=== PATIENT | male | born 1960 | race Caucasian/White ===

== ENCOUNTER 2021-05-10 11:00 | Emergency (ER) | payer SELFPAY ==
[2021-05-10 11:04] VITALS: BP 114/61; PULSE 60; RESP 16; TEMP 36.8; O2SAT 93; BMI 21.4
--- NOTE | 2021-05-10 11:28 | ECG_ITS ---
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 Measurements Intervals [place] Rate: 56 P: 67 ND: 155 QRS: 81 QRSD: 106 T: 90 QT: 446 QTc: 432 Interpretive Statements SINUS BRADYCARDIA POSSIBLE LEFT VENTRICULAR HYPERTROPHY [VOLTAGE CRITERIA PLUS LAE OR QRS WIDENING] MODERATE T-WAVE ABNORMALITY, CONSIDER ANTERIOR ISCHEMIA [-0.1+ mV T-WAVE IN V3/V4] Prominent U waves-consider electrolyte abnormalities/medications/ischemia Compared to ECG 05/01/2017 15:04:48 Sinus rhythm no longer present T-wave abnormality still present Possible ischemia still present Electronically Signed On 05-10-2021 22:17:45 POWERTRAIN ENGINEER by Fide Kurtz M.D. [email or web address] [email or web address] [email or web address].[email or web address]/store/NU/[id number] f
[2021-05-10] MEDS: sodium chloride 0.9% 1,000 ML 999 ML IV ×2 (11:30→13:00)
--- NOTE | 2021-05-10 11:30 | W.ED.GENADLT ---
HPI - General Adult General: Chief complaint: Nausea/Vomiting/Diarrhea Stated complaint: WEAKNESS; DEHYDRATION Time Seen by Provider: 05/10/21 11:06 History of Present Illness: HPI narrative: Patient is a 60-year-old male with history of CHF, A. fib on amiodarone presents to the emergency room with concerns of diarrhea, decreased p.o. intake. Patient says that that he has had diarrhea for the last 3 days. Patient has had decreased appetite. Denies any nausea or vomiting. Patient report mild dysuria symptoms without any new penile discharge. No trauma this time. Patient denies any associated chest pain, shortness of breath, palpitation or lightheadedness. Patient says that he has been feeling weak all over and had a cough for the last 3 days. No recent antibiotics, denies melena or hematochezia, no recent travel. Onset: 3 days ago Duration:3 days Location:home Severity:moderate Review of Systems Narrative: Constitutional: No fever, no chills. HEENT: No vision changes CV: No chest pain, no palpitations PULM: no cough, no dyspnea. GI: No abdominal pain, -N/-V/+D. +decreased appetite : No dysuria MSKEL: No muscle pain SKIN: No new rashes, no lesions. NEURO: No headache, no focal weakness. HEME: No visible bruises PSYCH: Normal mood Physical Exam Narrative: EXAM NARRATIVE: Head: Atraumatic Eyes: PERRL, conjunctiva without injection ENT: Mucous membrane moist NECK: Supple, ROM intact LUNGS: LCTAB, no crackles/rhonchi CV: RRR ABDOMEN: Soft, No focal TTP. NO guarding rebound, guarding, rigidity. No CVA tenderness to percussion. Neg Krishnamurthy/Neg McBurney's point tenderness, no suprabupic tenderness to palpation. EXTREMITY: Normal ROM SKIN: No rash or erythema NEURO: Awake and alert, no focal motor deficits PSYCH: Normal mood and affect Course Vital Signs: Vital signs: Vital Signs Temperature 98.3 F 05/10/21 11:04 Pulse Rate 60 05/10/21 17:36 Respiratory Rate 16 05/10/21 17:36 Blood Pressure 162/81 05/10/21 17:36 Pulse Oximetry 93 05/10/21 17:36 MDM - General Adult MDM Narrative: Medical decision making narrative: 60-year-old male with a history of A. fib on amiodarone, CHF presenting to the emergency room for concerns of diarrhea, generalized weakness, and symptoms of dysuria. On exam, patient has no focal findings. Symptoms are most consistent with possible viral infection including Covid. In addition, differential diagnosis includes gastroenteritis. No suspicion patient for acute intra-abdominal process patient has no focal abdominal tenderness palpation. Given generalized weakness, will evaluate with EKG. Workup: CBC, CMP, lipase, UA Intervention: IVF and covid Patient was found to be Covid positive. Creatinine noted 1.3. Likely reflective of dehydration. Patient instructed to drink plenty of water at this time and to continue to put up with p.o. intake. Troponin of 23 on arrival with delta of less than 5. Patient received 2 L of fluid, is now tolerating p.o. without any difficulty. Other electrolyte abnormality including sodium discussed with patient today. Rx: Maalox, Pepcid as needed dyspepsia Disposition: Discharge. Patient counseled regarding diagnostic impression, treatment plan. Patient given ED strict return precautions to return for continuation, worsening, or development of new symptoms. Instructed to f/u w/ PCP regarding symptoms today. Patient verbalized understanding. Lab Data: Labs: Lab Results 05/10/21 05/10/21 05/10/21 11:22 11:22 11:22 WBC 15.3 10^3/uL H 10 ^3/uL (4.0-10.0) RBC 4.77 10^6/uL 10^6 /uL (4.1-5.3) Hgb 14.6 g/dL g/dL (11.7-16.6) Hct 42.0 % % (42.0-52.0) MCV 88.1 fl fl (80-94) MCH 30.6 pg pg (28.0-34.0) MCHC 34.8 g/dL g/dL (30.0-36.0) RDW 17.5 % H % (12.1-15.1) Plt Count 228 10^3/cmm 10^3 /cmm (130-400) MPV 12.1 fL H fL (7.4-10.4) Neut % (Auto) 79.9 % % Lymph % (Auto) 10.3 % % [place] % (Auto) 9.1 % % Eos % (Auto) 0.1 % % Baso % (Auto) 0.1 % % Neut # (Auto) 12.19 10^3/uL H 1 0^3/uL (1.8-7.7) Lymph # (Auto) 1.6 10^3/uL 10^3/ uL (0.8-4.8) [place] # (Auto) 1.4 10^3/uL H 10^ 3/uL (0.2-0.9) Eos # (Auto) 0.0 10^3/uL 10^3/ uL (0.0-0.8) Baso # (Auto) 0.0 10^3/uL 10^3/ uL (0.0-0.1) Nucleated RBC % (a uto) 0 % % Nucleated RBCs # 0.0 /100WBC /100W BC Sodium 129 mmol/L L mmol /L (136-145) Potassium 3.9 mmol/L mmol/L (3.5-5.1) Chloride 95 mmol/L L mmol/ L (98-107) Carbon Dioxide 23 mmol/L mmol/L (22-29) Anion Gap 14.9 (5-19) BUN 21 mg/dL H mg/dL (6-20) Creatinine 1.3 mg/dL H mg/dL (0.7-1.2) GFR Calculation 56.5 mL/min L mL/ min (90-130) Glucose 114 mg/dL mg/dL (65-115) Calculated Osmolal ity 272 mOsm/kg L mOs m/kg (285-295) Calcium 7.7 mg/dL L mg/dL (8.5-10.5) Magnesium Total Bilirubin 0.8 mg/dL mg/dL (0.15-1.2) AST 594 U/L H U/L (0-40) ALT 776 U/L H U/L (0-41) Alkaline Phosphata se 96 IU/L IU/L (40-130) Troponin T Gen 5 n g/L 25 ng/L H ng/L (0-15) Troponin T 120 Min ken[place]ze Delta Troponin T Total Protein 6.7 g/dL g/dL (6.6-8.7) Albumin 3.2 g/dL L g/dL (3.5-5.2) Globulin 3.5 g/dL g/dL (1.3-4.6) Lipase 27 U/L U/L (13-60) Urine Color Urine Appearance Urine pH Ur Specific Gravit y Urine Protein Urine Glucose (UA) Urine Ketones Urine Blood Urine Nitrate Urine Bilirubin Urine Urobilinogen Ur Leukocyte Delaney ase Urine RBC Urine WBC Ur Squamous Epith Cells Ur Transition Epit h Cell Amorphous Sediment Urine Bacteria Coarse Granular Ca sts SARS-CoV-2 Ag (Rap id) 05/10/21 05/10/21 05/10/21 11:22 14:26 14:52 WBC RBC Hgb Hct MCV MCH MCHC RDW Plt Count MPV Neut % (Auto) Lymph % (Auto) [place] % (Auto) Eos % (Auto) Baso % (Auto) Neut # (Auto) Lymph # (Auto) [place] # (Auto) Eos # (Auto) Baso # (Auto) Nucleated RBC % (a uto) Nucleated RBCs # Sodium Potassium Chloride Carbon Dioxide Anion Gap BUN Creatinine GFR Calculation Glucose Calculated Osmolal ity Calcium Magnesium 2.0 mg/dL mg/dL (1.7-2.3) Total Bilirubin AST ALT Alkaline Phosphata se Troponin T Gen 5 n g/L Troponin T 120 Min [place] 19.59 ng/L H ng/L (0-15) Delta Troponin T -5.41 ABS# L ABS# (0-10) Total Protein Albumin Globulin Lipase Urine Color Urine Appearance Urine pH Ur Specific Gravit y Urine Protein Urine Glucose (UA) Urine Ketones Urine Blood Urine Nitrate Urine Bilirubin Urine Urobilinogen Ur Leukocyte Delaney ase Urine RBC Urine WBC Ur Squamous Epith Cells Ur Transition Epit h Cell Amorphous Sediment Urine Bacteria Coarse Granular Ca sts SARS-CoV-2 Ag (Rap id) Positive H (Negative) 05/10/21 15:50 WBC RBC Hgb Hct MCV MCH MCHC RDW Plt Count MPV Neut % (Auto) Lymph % (Auto) [place] % (Auto) Eos % (Auto) Baso % (Auto) Neut # (Auto) Lymph # (Auto) [place] # (Auto) Eos # (Auto) Baso # (Auto) Nucleated RBC % (a uto) Nucleated RBCs # Sodium Potassium Chloride Carbon Dioxide Anion Gap BUN Creatinine GFR Calculation Glucose Calculated Osmolal ity Calcium Magnesium Total Bilirubin AST ALT Alkaline Phosphata se Troponin T Gen 5 n g/L Troponin T 120 Min [place] Delta Troponin T Total Protein Albumin Globulin Lipase Urine Color Yellow (Yellow) Urine Appearance Clear (CLEAR) Urine pH 5 (5-7) Ur Specific Gravit y 1.020 (1.005-1.030) Urine Protein Neg (Negative) Urine Glucose (UA) Norm (Normal) Urine Ketones Negative (Negative) Urine Blood 2+ H (Negative) Urine Nitrate Negative (Negative) Urine Bilirubin Neg (Negative) Urine Urobilinogen Norm mg/dL mg/dL (Negative) Ur Leukocyte Delaney ase Negative (Negative) Urine RBC Rare /hpf /hpf (0-2) Urine WBC 0-4 /hpf H /hpf (0-5) Ur Squamous Epith Cells None /hpf /hpf (0-5) Ur Transition Epit h Cell 0-4 /hpf /hpf Amorphous Sediment Not Reportable Urine Bacteria Trace /hpf /hpf (NONE) Coarse Granular Ca sts 10-15 /lpf H /lpf SARS-CoV-2 Ag (Rap id) Discharge Plan Discharge Patient Disposition: Home Clinical Impression: Diarrhea, Nausea & vomiting, COVID Condition: Stable Prescriptions: New Pepcid 20 mg tablet 20 mg PO BID PRN (Reason: abdominal pain) 10 Days Qty: 20 RF: 0 Maalox Advanced 1,000-60 mg tablet,chewable 1 tab PO TID PRN (Reason: abdominal pain) 7 Days Qty: 21 RF: 0 Zofran 4 mg tablet 4 mg PO TID PRN (Reason: nausea and vomiting) 4 Days Qty: 12 RF: 0 No Action amlodipine 10 mg tablet 10 mg PO DAILY 90 Days Qty: 90 RF: 3 Discharge Orders: Discharge ED (Routine); Ordered 05/10/21 Ordered By: Jesus Morales Referrals: Bertha Balderrama MD [Primary Care Provider] - Discharge Diet: Advance as tolerated Discharge Activity: Resume usual activity Patient Instructions: Acute Diarrhea (ED), COVID-19 (Coronavirus Disease 2019) (ED) Activity Restrictions/Additional Instructions: Come back if you have any nausea or vomiting, difficulty eating or drinking, worsening diarrhea, blood in the stool, or any new or concerning complaints. Please come back if your pulse Ox is less than 92. 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
[2021-05-10] MEDS: sodium chloride 0.9% 500 ML IV (11:31)
[2021-05-10] MEDS: lidocaine 2% viscous 15 ML, aluminum-mag hydrox-simethicon 30 ML, sucralfate oral liq 1 GM PO (11:32)
[2021-05-10 11:41] LABS: Basophils % 0.1 %; Eosinophils % 0.1 %; Hemoglobin 14.6 g/dL (11.7-16.6); Lymphocytes # 1.6 10^3/uL (0.8-4.8); Lymphocytes % 10.3 %; Mean Corpuscular HGB Conc 34.8 g/dL (30.0-36.0); Mean Corpuscular Hemoglobin 30.6 pg (28.0-34.0); Mean Corpuscular Volume 88.1 fl (80-94); Mean Platelet Volume 12.1 fL (7.4-10.4); Monocytes # 1.4 10^3/uL (0.2-0.9); Monocytes % 9.1 %; Neutrophils # 12.19 10^3/uL (1.8-7.7); Neutrophils % 79.9 %; Nucleated Red Blood Cells % 0 %; Platelet Count 228 10^3/cmm (130-400); Red Blood Count 4.77 10^6/uL (4.1-5.3); Red Cell Distribution Width 17.5 % (12.1-15.1); White Blood Count 15.3 10^3/uL (4.0-10.0)
[2021-05-10 12:22] LABS: Albumin Level 3.2 g/dL (3.5-5.2); Alkaline Phosphatase 96 IU/L (40-130); Anion Gap 14.9 (5-19); Aspartate Amino Transferase 594 U/L (0-40); Blood Urea Nitrogen 21 mg/dL (6-20); Calcium 7.7 mg/dL (8.5-10.5); Carbon Dioxide 23 mmol/L (22-29); Chloride 95 mmol/L (98-107); Globulin 3.5 g/dL (1.3-4.6); Glomerular Filtration Rate 56.5 mL/min (90-130); Glucose 114 mg/dL (65-115); Lipase 27 U/L (13-60); Osmolality Calculated 272 mOsm/kg (285-295); Potassium 3.9 mmol/L (3.5-5.1); Sodium 129 mmol/L (136-145); Total Bilirubin 0.8 mg/dL (0.15-1.2); Total Protein 6.7 g/dL (6.6-8.7)
[2021-05-10 12:23] LABS: Troponin T (5th) Once 25 ng/L (0-15)
[2021-05-10 12:33] LABS: Alanine Aminotransferase 776 U/L (0-41)
[2021-05-10 12:51] VITALS: BP 122/65; RESP 16; O2SAT 94
--- NOTE | 2021-05-10 14:32 | ECG_ITS ---
[facility] Test Date: 2021-05-10 Pat Name: Davonte Ruiz Department: Room: Gender: Male Business Professor: : 1960 Requested By: Jesus Morales Order Number: [id number] Shameka MD: Fide Kurtz M.D. Measurements Intervals [place] Rate: 63 P: 83 DE: 166 QRS: 82 QRSD: 110 T: 82 QT: 542 QTc: 555 Interpretive Statements SINUS RHYTHM POSSIBLE LEFT VENTRICULAR HYPERTROPHY [VOLTAGE CRITERIA PLUS LAE OR QRS WIDENING] MODERATE T-WAVE ABNORMALITY, CONSIDER ANTERIOR ISCHEMIA [-0.1+ mV T-WAVE IN V3/V4] Compared to ECG 05/10/2021 12:47:55 Sinus bradycardia no longer present T-wave abnormality still present Possible ischemia still present Electronically Signed On 05-10-2021 22:18:09 DECISION SUPPORT MANAGER by Fide Kurtz M.D. [email or web address] choice medical center of smith countyBest Apps Marketlouis stokes [facility].[email or web address]/store/[id number] f
[2021-05-10 15:00] VITALS: BP 142/72; PULSE 59; RESP 16; O2SAT 95
[2021-05-10 15:23] LABS: Troponin 5 2HR 19.59 ng/L (0-15)
[2021-05-10 15:42] LABS: SARS Covid-2 Antigen Positive (Negative)
[2021-05-10 15:51] LABS: Troponin 5 2HR Delta -5.41 ABS# (0-10)
[2021-05-10 16:37] VITALS: BP 142/73; PULSE 60; RESP 16; O2SAT 93
[2021-05-10 17:16] LABS: Add Urine Microscopic? YES; Bacteria Urine TRACE /hpf; Bilirubin Urine Neg (Negative); Blood Urine 2+ (Negative); Glucose Urine UA Norm (Normal); Ketones Urine Negative (Negative); Leukocyte Esterase Urine Negative (Negative); Nitrate Urine Negative (Negative); Protein Urine Neg (Negative); RBC Urine RARE /hpf (0-2); Transitional Epi Cells Urine 0-4 /hpf; Urine Appearance Clear (CLEAR); Urine Color Yellow (Yellow); Urobilinogen Urine Norm (Negative); WBC Urine 0-4 /hpf (0-5); pH Urine 5 (5-7)
[2021-05-10 17:17] LABS: Add Urine Culture? No
[2021-05-10 17:36] VITALS: BP 162/81; PULSE 60; RESP 16; O2SAT 93
[2021-05-12 16:30] LABS: Coronavirus Test Green County Detected
--- NOTE | 2021-05-13 09:05 | PC.NURSE ---
Addendum entered by Vangie Yi RN 05/13/21 09:07: Pt was notified of Positive COVID test is (+). Ignore first message Original Note: Notified pt of Negative COVID result
== END 2021-05-10 18:03 | disposition home or self-care (01) ==
PROVIDERS: Emergency Provider Emergency Medicine; PCP Family Medicine
DX: U07.1 COVID-19 (principal)
CPT/HCPCS: 36415; 80053; 81001; 83690; 83735; 84484; 85025; 87426; 87635; 93005; 96360; 96361; 99283; J7030; J7040

== ENCOUNTER 2021-05-22 12:03 | Outpatient (CLI) | payer OTHER, SELFPAY ==
--- NOTE | 2021-05-22 12:14 | XR_ITS ---
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 Findings: No nodules, masses or effusions are seen. The heart is normal. The pulmonary vascularity is not increased. No pneumonia or pneumothorax is seen. Midline sternotomy sutures are seen. XR/XR chest 2V* [id number] Impression: Negative chest.
== END 2021-05-22 12:04 | disposition home or self-care (01) ==
LOC: RAD 12:07
PROVIDERS: PCP Electrodiagnostic Medicine; Visit Provider Electrodiagnostic Medicine
DX: U07.1 COVID-19 (principal); G61.0 Guillain-Barre syndrome; I25.5 Ischemic cardiomyopathy
CPT/HCPCS: 71046

== ENCOUNTER 2021-07-23 08:37 | Outpatient (CLI) | payer BC, SELFPAY ==
[2021-07-23 09:12] LABS: INR 1.73 (0.8-1.2)
== END 2021-07-23 08:38 | disposition home or self-care (01) ==
LOC: LAB 08:39
PROVIDERS: PCP Electrodiagnostic Medicine; Visit Provider Electrodiagnostic Medicine
DX: G61.81 Chronic inflammatory demyelinating polyneuritis (principal); I25.5 Ischemic cardiomyopathy; I48.91 Unspecified atrial fibrillation
CPT/HCPCS: 85610

== ENCOUNTER → 2021-07-31 08:39 | Day surgery (SDC) | payer BC, SELFPAY ==
[2021-07-31] MEDS: acetaminophen 325 mg Tablet 650 MG PO (08:55)
[2021-07-31] MEDS: diphenhydrAMINE 25 mg Capsule 50 MG PO (08:55)
[2021-07-31 09:11] VITALS: BP 121/67; PULSE 56; RESP 18; TEMP 36; O2SAT 98
== END ==
PROVIDERS: PCP Electrodiagnostic Medicine; Visit Provider Psychiatry & Neurology Neurology
DX: G61.81 Chronic inflammatory demyelinating polyneuritis (principal)
CPT/HCPCS: 96365; 96366; J1568

== ENCOUNTER 2021-07-31 08:40 | Outpatient (CLI) | payer BC, SELFPAY ==
[2021-07-31 09:08] LABS: INR 2.21 (0.8-1.2)
== END 2021-07-31 08:41 | disposition home or self-care (01) ==
PROVIDERS: PCP Electrodiagnostic Medicine; Visit Provider Electrodiagnostic Medicine
DX: G61.81 Chronic inflammatory demyelinating polyneuritis (principal); I25.5 Ischemic cardiomyopathy; I48.91 Unspecified atrial fibrillation
CPT/HCPCS: 85610

== ENCOUNTER → 2021-08-21 08:38 | Day surgery (SDC) | payer BC, SELFPAY ==
[2021-08-21] MEDS: diphenhydrAMINE 50 mg Capsule PO (08:58)
[2021-08-21] MEDS: acetaminophen 325 mg Tablet 650 MG PO (08:58)
[2021-08-21 09:10] VITALS: BP 143/65; PULSE 60; RESP 18; TEMP 36.6; O2SAT 98
== END ==
PROVIDERS: PCP Electrodiagnostic Medicine; Visit Provider Psychiatry & Neurology Neurology
DX: G61.81 Chronic inflammatory demyelinating polyneuritis (principal)
CPT/HCPCS: 96365; 96366; J1568; Q0163

== ENCOUNTER → 2021-09-09 09:10 | Day surgery (SDC) | payer BC, SELFPAY ==
[2021-09-09] MEDS: diphenhydrAMINE 50 mg Capsule PO (09:42)
[2021-09-09] MEDS: acetaminophen 325 mg Tablet 650 MG PO (09:42)
[2021-09-09 09:52] VITALS: BP 155/89; PULSE 65; RESP 18; TEMP 36.8; O2SAT 97
== END ==
PROVIDERS: PCP Electrodiagnostic Medicine; Visit Provider Psychiatry & Neurology Neurology
DX: G61.81 Chronic inflammatory demyelinating polyneuritis (principal)
CPT/HCPCS: 96365; 96366; J1568; Q0163

== ENCOUNTER → 2021-11-03 08:42 | Day surgery (SDC) | payer BC, SELFPAY ==
[2021-11-03 09:00] VITALS: BP 150/98; PULSE 66; RESP 18; TEMP 36.9; O2SAT 97
[2021-11-03] MEDS: NON-FORMULARY MEDICATION 1 EACH IV (09:23)
== END ==
PROVIDERS: PCP Electrodiagnostic Medicine; Visit Provider Psychiatry & Neurology Neurology
DX: G61.81 Chronic inflammatory demyelinating polyneuritis (principal)
CPT/HCPCS: 96365; 96366

== ENCOUNTER → 2021-11-25 08:59 | Day surgery (SDC) | payer BC, SELFPAY ==
[2021-11-25] MEDS: NON-FORMULARY MEDICATION 1 EACH XX (09:15)
[2021-11-25 09:19] VITALS: BP 145/82; PULSE 65; RESP 18; TEMP 36.3; O2SAT 96
== END ==
PROVIDERS: PCP Electrodiagnostic Medicine; Visit Provider Psychiatry & Neurology Neurology
DX: G61.81 Chronic inflammatory demyelinating polyneuritis (principal)
CPT/HCPCS: 96365; 96366

== ENCOUNTER → 2021-12-15 08:54 | Day surgery (SDC) | payer BC, SELFPAY ==
[2021-12-15 09:14] VITALS: BP 139/75; PULSE 72; RESP 18; TEMP 36.9; O2SAT 96
[2021-12-15] MEDS: NON-FORMULARY MEDICATION 1 EACH IV (09:15)
== END ==
PROVIDERS: PCP Electrodiagnostic Medicine; Visit Provider Psychiatry & Neurology Neurology
DX: G61.81 Chronic inflammatory demyelinating polyneuritis (principal)
CPT/HCPCS: 96365; 96366

== ENCOUNTER → 2022-01-07 09:46 | Day surgery (SDC) | payer BC, SELFPAY ==
[2022-01-07 10:09] VITALS: BP 144/83; PULSE 69; RESP 18; TEMP 36.8; O2SAT 98
== END ==
PROVIDERS: PCP Electrodiagnostic Medicine; Visit Provider Psychiatry & Neurology Neurology
DX: G61.81 Chronic inflammatory demyelinating polyneuritis (principal)
CPT/HCPCS: 96365; 96366